=== PATIENT | female | born 1985 | race Caucasian/White ===

== ENCOUNTER 2017-06-15 10:12 | Emergency (ER) | payer BC ==
[~2017-06-15] VITALS: Ht 157.5 cm; Wt 82.7 kg
[~2017-06-15 10:12] MED LIST: IBUP600T44 PO; OXYC-57 PO; PRENTAB26 PO
[2017-06-15 10:21] VITALS: Ht 157.5 cm; Wt 82.7 kg
[2017-06-15] MEDS ORDERED: CLINDAMYCIN 600 MG/54 ML D5W IV ONE (11:00)
[2017-06-15] MEDS ORDERED: DEXAMETHASONE INJ 10 MG in SYRINGE 0 ML IV ONE (11:00)
[2017-06-15] MEDS ORDERED: CLINDAMYCIN IV 900 MG in DEXTROSE 5% 100ML 100 ML IV ONE (11:15)
[2017-06-15] MEDS ORDERED: DEXAMETHASONE **PF** INJ 10 MG/ML VIAL ONE (11:26)
[2017-06-15 11:32] LABS: HEMOGLOBIN 13.3 g/dL (12.0-16.0); MEAN CELL VOLUME 79.7 fL (80-100); MEAN CORPUSCULAR HEMOGLOBIN 26.5 pg (25-34); MEAN CORPUSCULAR HGB CONC 33.3 g/dl (32-36); MEAN PLATELET VOLUME 9.8 fL (7.4-10.4); PLATELET COUNT 264 K/uL (130-400); RED CELL DISTRIBUTION WIDTH CV 13.9 % (11.5-14.5); RED CELL DISTRIBUTION WIDTH SD 40.4 fL (36.4-46.3)
[2017-06-15 11:40] VITALS: TEMP 36.9
[2017-06-15 11:49] LABS: CALCIUM 8.8 mg/dl (8.5-10.1); CREATININE 0.77 mg/dl (0.60-1.20); POTASSIUM 3.9 mmol/L (3.5-5.1)
[2017-06-15] MEDS ORDERED: PRD10 PO (13:00)
[2017-06-15] MEDS ORDERED: CLIN300C2 PO (13:00)
--- NOTE | 2017-06-15 13:02 | EMERGENCY ROOM VISIT NOTE ---
History Report prepared by Herveibjoann: Noa Monet Under the Supervision of: Dr. Brown Mathis D.O. First contact with patient: 10:39 Chief Complaint: THROAT PAIN/INJURY Stated Complaint: POSSIBLE ABCESS ON TONSIL History of Present Illness The patient is a 32 year old female who presents to the Emergency Room with complaints of persistent throat pain for the past 6 days. She rates her discomfort as an 8/10 in severity. She reports she recently went to a walk-in clinic in [place] and was told she has a tonsillar abscess on the left side. She was not given any antibiotics. She states it started to increase in size yesterday. The patient denies any difficulty breathing or opening her throat. Source of History: patient Onset: 6 days [employer] Position: throat Symptom Intensity: 8/10 Timing: other (persistent) Associated Symptoms: No SOB Review of Systems See HPI for pertinent positives & negatives. A total of 10 systems reviewed and were otherwise negative. Past Medical & Surgical Medical Problems: (1) PREV DELIVERY, ANTEPARTUM COND OR COMPLIC (2) SUPERVIS OTH NORMAL PREG Social History Smoking Status: Never Smoker Alcohol Use: occasionally Drug Use: none Marital Status: Housing Status: lives with family Occupation Status: employed Current/Historical Medications Scheduled Clindamycin Hcl (Cleocin), 300 MG PO QID Prednisone (Prednisone), 10 MG PO DIRECTED Scheduled PRN Ibuprofen (Motrin), 600 MG PO Q4H PRN Allergies Coded Allergies: Amoxicillin (Verified Allergy, Severe, TONGUE SWELLING, ITCHING, RASH, STOMACH PAIN, 06/15/17) Clavulanic Acid (Verified Allergy, Severe, TONGUE SWELLING, ITCHING, RASH , STOMACH PAIN, 06/15/17) Physical Exam Vital Signs Date Time Temp Pulse Resp B/P (MAP) Pulse Ox O2 Delivery O2 Flow Rate FiO2 06/15/17 11:40 36.9 99 18 131/84 99 Room Air 06/15/17 10:26 99 Room Air 06/15/17 10:21 36.8 119 18 151/99 98 Room Air Physical Exam CONSTITUTIONAL/VITAL SIGNS: Reviewed / noted above. GENERAL: Non-toxic in appearance. INTEGUMENTARY: Warm, dry, and [place]. HEAD: Normocephalic. EYES: without scleral icterus or trauma. ENT/OROPHARYNX: Mild left peritonsillar fullness and erythema without exudate. Mild "hot potato voice". No trismus. Minimal anterior lymphadenopathy. LYMPHADENOPATHY/NECK: Is supple without lymphadenopathy or meningismus. RESPIRATORY: Lungs clear and equal. CARDIOVASCULAR: Regular rate and rhythm. GI/ABDOMEN: Soft and nontender. No organomegaly or pulsatile mass. No rebound or guarding. Normal bowel sounds. EXTREMITIES: Warm and well perfused. BACK: No CVA tenderness. NEUROLOGICAL: Intact without focal deficits. PSYCHIATRIC: normal affect. MUSCULOSKELETAL: Normally developed with good muscle tone. Medical Decision & Procedures Laboratory Results 06/15/17 11:20 06/15/17 11:20 Test 06/15/17 11:20 Red Blood Count 5.02 M/uL (4.2-5.4) Mean Corpuscular Volume 79.7 fL (80-100) Mean Corpuscular Hemoglobin 26.5 pg (25-34) Mean Corpuscular Hemoglobin Concent 33.3 g/dl (32-36) RDW Standard Deviation 40.4 fL (36.4-46.3) RDW Coefficient of Variation 13.9 % (11.5-14.5) Mean Platelet Volume 9.8 fL (7.4-10.4) Anion Gap 6.0 mmol/L (3-11) Est Creatinine Clear Calc Drug Dose 102.6 ml/min Estimated GFR () 116.8 Estimated GFR (Non- 100.7 BUN/Creatinine Ratio 7.4 (10-20) Calcium Level 8.8 mg/dl (8.5-10.1) Laboratory results as stated above per my review. Medications Administered Medications (Trade) Dose Ordered Sig/Rosalai Route Start Time Stop Time Status Last Admin Dose Admin Clindamycin Phosphate 900 mg/ Dextrose 106 ml @ 100 mls/hr ONE ONCE IV 06/15/17 11:15 06/15/17 12:18 DC 06/15/17 11:31 100 MLS/HR Dexamethasone Sodium Phosphate (Dexamethasone Inj Pf) 10 mg STK-MED ONCE .ROUTE 06/15/17 11:26 06/15/17 11:27 DC 06/15/17 11:31 10 MG ED Course 1054: Previous medical records were reviewed. The patient was evaluated in room B11. A complete history and physical examination was performed. 1100: Dexamethasone Sodium Phosphate 10 mg/Syringe 2.5 ml @ 1 mls/min IV, Cleocin 600 mg IV. 1106: I discussed the patients case with Jonna Pedroza ENT. He recommends Clindamycin and will follow up with the patient in the office. 1250: I reevaluated the patient. She is feeling better and resting comfortably. I discussed her results and discharge instructions and she verbalized complete understanding and agreement. Medical Decision Etiologies such as viral syndrome, tonsillitis, streptococcal pharyngitis, mononucleosis, peritonsillar abscess, retropharyngeal abscess, otitis, pneumonia , influenza, as well as others were entertained. This is a 32-year-old female who presents to the ED with a chief complaint of a peritonsillar abscess. The patient states that she had a sore throat for about a week. Over the past 12-16 hours, she developed increasing pain in the left side of her throat. She was seen at urgent care today and sent here for peritonsillar abscess. The patient's exam does reveal what appears to be an early peritonsillar abscess. The patient has no trismus on exam. She has a minimal hot potato voice. There is some swelling and erythema to the left peritonsillar region. There is no midline shift of the uvula. There is no exudate. The patient has no difficulty swallowing. She has no difficulty breathing. This is likely an early or mild peritonsillar abscess. After discussing the case with the ENT specialist on-call, Dr. Jalloh, the decision was made to have the patient follow-up on Saturday in his office. She will be given IV clindamycin and IV Decadron here. She will be discharged on clindamycin and prednisone as discussed with Dr. Jalloh. She is felt to be stable for discharge and outpatient follow-up. Medication Reconcilliation Current Medication List: was personally reviewed by me Blood Pressure Screening Patient's blood pressure: Normal blood pressure Blood pressure disposition: Did not require urgent referral Consults Time Called: 1100 Consulting Physician: Jonna Pedroza ENT Returned Call: 1106 I discussed the patients case with Jonna Pedroza ENT. He recommends Clindamycin and will follow up with the patient in the office. Impression Primary Impression: Peritonsillar abscess Scribe Attestation The scribe's documentation has been prepared under my direction and personally reviewed by me in its entirety. I confirm that the note above accurately reflects all work, treatment, procedures, and medical decision making performed by me. Departure Information Dispostion Home / Self-Care Prescriptions Prednisone (Prednisone) 10 Mg Tab 10 MG PO DIRECTED, #26 TAB Take 3 tablets bid for 2 days.Take 2 tablets bid for 2 days. Take 1 tablet bid for 2 days. Take 1 tablet qd for 2 days. Prov: Brown Mathis D.O. 06/15/17 Clindamycin Hcl (CLEOCIN) 300 Mg Cap 300 MG PO QID, #40 CAP Prov: Brown Mathis D.O. 06/15/17 Referrals No Doctor, Assigned (PCP) Patient Instructions [facility] Additional Instructions Clindamycin as prescribed. Prednisone as prescribed. Follow-up with Dr. Jalloh (ENT) Saturday. Call for appointment at 8am. Return for any concerns.
[2017-06-15 13:12] VITALS: BP 128/78; PULSE 87; O2SAT 98
== END 2017-06-15 13:13 | disposition home or self-care (01) ==
LOC: C.EDB 10:13
DX: J36 Peritonsillar abscess (principal); Z88.0 Allergy status to penicillin; Z88.1 Allergy status to other antibiotic agents